=== PATIENT | male | born 1990 | race Caucasian/White ===

== ENCOUNTER 2017-11-05 10:57 | Inpatient (IN) | payer BC, OTHER ==
[2017-11-05] MEDS ORDERED: VANCOMYCIN HCL/NORMAL SALINE 250 ML IV ONE (11:33)
[2017-11-05] MEDS ORDERED: ceFAZolin 2 GM/DEXTROSE 100 ML IV ONE (11:34)
--- NOTE | 2017-11-05 11:35 | EDPHY ---
H & P <Aristeo Vann Dontae - Last Filed: 11/05/17 12:15> Stated Complaint: spider bite to L foot - Personal History Current Tetanus/Diphtheria Vaccine: Yes Current Tetanus Diphtheria and Acellular Pertussis (TDAP): Yes - Medical/Surgical History Hx Asthma: No Hx Chronic Respiratory Disease: No Hx Diabetes: No Hx Cardiac Disease: No Hx Renal Disease: No Hx Cirrhosis: No Hx Alcoholism: No Hx HIV/AIDS: No Hx Splenectomy or Spleen Trauma: No - Social History Smoking Status: Never smoked <Lj Larsen - Last Filed: 11/05/17 13:01> Time Seen by Provider: 11/05/17 11:15 HPI/ROS: CHIEF COMPLAINT: Progressive left pretibial erythema HISTORY OF PRESENT ILLNESS: 27-year-old immunocompetent 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 States that it started when he was sleeping in his bunk bed on the boat [place] it was in dry dock, awoke and noticed left pretibial erythema. This progressed over the next few days. At no point has this area come into contact with any salt water containing objects on the boat. 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 Appears to be in no acute distress. Smiling, appears well 2) HEAD: Normocephalic, atraumatic 3) HEENT: Pupils equal, round, reactive to light bilaterally. Sclera anicteric. 4) NECK: Full range of motion, no meningeal signs. 5) LUNGS: Clear auscultation bilaterally, no wheezes, no rhonchi, no retractions. 6) HEART: Regular rate and rhythm, no murmur, no heave, no gallop. 7) ABDOMEN: No guarding, no rebound, no focal tenderness, negative McBurney's, negative Sawyer's, negative Rovsing's, negative peritoneal sign, 8) MUSCULOSKELETAL: Left lower extremity: Left pretibial fluctuance in foul- smelling purulent drainage. Soft compartments. Erythema noted with induration and lymphangitic streaking. No crepitus. DP PT pulses present and brisk. Dorsiflexion plantar flexion distally elicit no pain.. 9) BACK: , no obvious trauma, no visual or palpable abnormality. 10) SKIN: No rash, no petechiae. 11) Psychiatric: Patient is oriented X 3, there is no agitation. DIFFERENTIAL DIAGNOSIS: In no particular order including but but not limited to cellulitis, abscess, compartment syndrome, necrotizing fasciitis (jL Larsen) Constitutional: Initial Vital Signs Temperature (C) 37.8 C 11/05/17 11:00 Heart Rate 116 H 11/05/17 11:00 Respiratory Rate 16 11/05/17 11:00 Blood Pressure 133/88 H 11/05/17 11:00 O2 Sat (%) 97 11/05/17 11:00 O2 Delivery Mode Room Air Allergies/Adverse Reactions: No Known Allergies Allergy (Unverified 11/05/17 12:05) Home Medications: Medication Instructions Recorded NK [No Known Home Meds] 11/05/17 Medical Decision Making Consult/Admit Bed Type: [place] [id number] <Aristeo Vann - Last Filed: 11/05/17 12:15> <Lj Larsen - Last Filed: 11/05/17 13:01> - Diagnostics Imaging Results: Imaging Impressions Extremity Venous Study 11/05/17 11:23 Impression: 1. Left anterior slaughter complex fluid collection which by history is an abscess. 2. No deep venous thrombosis left leg. Findings and recommendations discussed with Emergency Department physicianLj at 12:10 hour, 11/05/2017. Final report concurs with initial preliminary interpretation. ED Course/Re-evaluation: Patient seen concurrently by myself and Dr. Aristeo Vann in the ER. Plan will be admission to hospitalist service for cellulitis left lower extremity, failure to respond to outpatient antibiotic therapy. Specifically inquired about whether his leg may have come into contact with any salt water containing objects and he denies this. Will hold on vibrio coverage at this time. 12:11 p.m.: Ultrasound left lower extremities negative for DVT a positive for a 7 cm x 4 cm abscess in the pretibial region (Lj Larsen) Other Provider: PHYSICIAN DOCUMENTATION: The patient was evaluated and managed by the Physician Fuse Cup Expander and myself. I have reviewed the chart and agree with the findings and plan of care as documented. In addition, I examined the patient myself at 1130. History confirmed as 10 days of worsening left leg redness. Physical findings as follows : Erythema and swelling of the left leg with some anterior drainage of serosanguineous fluid. Normal motor and sensory distally. No crepitus. Plan for ultrasound, blood cultures, IV antibiotics and admission. Vancomycin 1 g, General surgery consultation for fluid collection seen on ultrasound. Discussed with [place] regarding left leg abscess, 1216. I am the secondary supervising physician. (Aristeo Vann) - Data Points Laboratory Results: Laboratory Results 11/05/17 11:24 11/05/17 11:24 11/05/17 11/05/17 11/05/17 11:24 11:24 11:24 WBC RBC Hgb Hct MCV MCH MCHC RDW Plt Count MPV Neut % (Auto) Lymph % (Auto) [place] % (Auto) Eos % (Auto) Baso % (Auto) Nucleat RBC Rel Count Absolute Neuts (auto) Absolute Lymphs (auto) Absolute Monos (auto) Absolute Eos (auto) Absolute Basos (auto) Absolute Nucleated RBC Immature Gran % Immature Gran # PT 15.7 SEC H SEC (12.0-15.0) INR 1.23 H (0.83-1.16) APTT 38.5 SEC H SEC (23.0-38.0) VBG Lactic Acid 1.4 mmol/L mmol/L (0.7-2.1) Sodium 136 mEq/L mEq/L (135-145) Potassium 3.6 mEq/L mEq/L (3.3-5.0) Chloride 98 mEq/L mEq/L (97-110) Carbon Dioxide 27 mEq/l mEq/l (22-31) Anion Gap 11 mEq/L mEq/L (8-16) BUN 8 mg/dL mg/dL (7-23) Creatinine 0.7 mg/dL mg/dL (0.7-1.3) Estimated GFR > 60 Glucose 107 mg/dL H mg/dL (70-100) Calcium 8.6 mg/dL mg/dL (8.5-10.4) Total Bilirubin 1.1 mg/dL mg/dL (0.1-1.4) 11/05/17 11:24 WBC 15.40 10^3/uL H 10^3/uL (3.80-9.50) RBC 4.17 10^6/uL L 10^6/uL (4.40-6.38) Hgb 12.8 g/dL L g/dL (13.7-17.5) Hct 36.5 % L % (40.0-51.0) MCV 87.5 fL fL (81.5-99.8) MCH 30.7 pg pg (27.9-34.1) MCHC 35.1 g/dL g/dL (32.4-36.7) RDW 12.1 % % (11.5-15.2) Plt Count 285 10^3/uL 10^3/uL (150-400) MPV 9.9 fL fL (8.7-11.7) Neut % (Auto) 81.5 % H % (39.3-74.2) Lymph % (Auto) 9.4 % L % (15.0-45.0) [place] % (Auto) 7.9 % % (4.5-13.0) Eos % (Auto) 0.5 % L % (0.6-7.6) Baso % (Auto) 0.2 % L % (0.3-1.7) Nucleat RBC Rel Count 0.0 % % (0.0-0.2) Absolute Neuts (auto) 12.56 10^3/uL H 10^3/uL (1.70-6.50) Absolute Lymphs (auto) 1.44 10^3/uL 10^3/uL (1.00-3.00) Absolute Monos (auto) 1.22 10^3/uL H 10^3/uL (0.30-0.80) Absolute Eos (auto) 0.08 10^3/uL 10^3/uL (0.03-0.40) Absolute Basos (auto) 0.03 10^3/uL 10^3/uL (0.02-0.10) Absolute Nucleated RBC 0.00 10^3/uL 10^3/uL (0-0.01) Immature Gran % 0.5 % % (0.0-1.1) Immature Gran # 0.07 10^3/uL 10^3/uL (0.00-0.10) PT INR APTT VBG Lactic Acid Sodium Potassium Chloride Carbon Dioxide Anion Gap BUN Creatinine Estimated GFR Glucose Calcium Total Bilirubin Medications Given: Discontinued Medications Vancomycin/Sodium Chloride (Vancomycin 1 Gm (Premix)) 250 mls @ 250 mls/hr IV EDNOW ONE PRN Reason: Protocol Stop: 11/05/17 12:32 Last Admin: 11/05/17 12:06 Dose: 250 mls Departure <Aristeo Vann - Last Filed: 11/05/17 12:15> <Lj Larsen - Last Filed: 11/05/17 13:01> - Departure Disposition: [facility] Inpatient Acute Clinical Impression: Left leg cellulitis, Abscess of left lower extremity Condition: Fair
[2017-11-05 11:39] LABS: PLATELET COUNT 285 10^3/uL (150-400)
[2017-11-05 11:52] LABS: INR 1.23 (0.83-1.16); PROTIME(PATIENT) 15.7 SEC (12.0-15.0)
[2017-11-05] MEDS ORDERED: NS 1,000 ML IV ONE (12:31)
[2017-11-05] MEDS ORDERED: ACETAMINOPHEN 325 MG TAB PO PRN (12:32)
[2017-11-05] MEDS ORDERED: ONDANSETRON 4 MG/2 ML VIAL IVP PRN ×2 (12:32→13:47)
[2017-11-05] MEDS ORDERED: ZOLPIDEM TARTRATE 5 MG TAB PO PRN (12:32)
[2017-11-05] MEDS ORDERED: ONDANSETRON DISINTEGRATING 4 MG TAB PO PRN (12:32)
--- NOTE | 2017-11-05 12:34 | PDGENHP ---
History and Physical History and Physical: CC: HISTORY: ROS: A comprehensive 10 system review revealed no other significant findings PAST MEDICAL HISTORY: FAMILY MEDICAL HISTORY: SOCIAL HISTORY: MEDICATIONS: The patients list has been reconciled by our clinical pharmacist in the EMR. I have reviewed the list and ordered appropriate medicines. 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 I have reviewed the patient's past medical records as part of this assessment, including
[2017-11-05] MEDS ORDERED: traMADol 50 MG TAB PO PRN (12:35)
[2017-11-05] MEDS ORDERED: HYDROmorphONE/DILAUDID 2 MG TAB PO PRN (12:35)
--- NOTE | 2017-11-05 13:15 | GHP ---
[f rep st] PREOP HISTORY AND PHYSICAL DATE OF ADMISSION: 11/05/2017 REASON FOR ADMISSION: Abscess, left anterior lateral lower leg. 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 On the night of the , he noticed a small redness on his left lower leg. He thought it might have have an insect bite. He covered it with a Band-Aid. This was bigger the next day. It became gradually redder and larger over the interim. On the evening of the , there was an increased redness as well as some swelling of his leg. He was taken to a clinic where he received Ancef and vancomycin. They recommended that he go either to [place] or back to [place]; he chose the latter. He presented this morning for evaluation. His temperature was 37.6. His white count was 15,000. Blood pressure 135 over 86 to 116. He was draining some purulent material from the center of the infected area. He was interrogated with ultrasound. An x-ray is pending. SOCIAL HISTORY: There is no history of tobacco use. He does drink alcohol moderately heavily, but because of the fishing trip, he has not had any in the last 2 weeks. ALLERGIES: He has no known drug allergies. PAST SURGICAL HISTORY: His only surgical experience has been wisdom tooth extraction. There is no history of rheumatic fevers, tuberculosis, hepatitis, or transfusions. REVIEW OF SYSTEMS: He wears lenses visual correction. Review of systems is otherwise quite negative. No limits on his activities and no history of steroid use. PHYSICAL EXAMINATION: GENERAL: He is awake, alert, oriented. He does not appear septic at this time. LYMPHATICS: There is no cervical, supraclavicular , axillary, or inguinal lymphadenopathy. NECK: His thyroid is not enlarged. LUNGS: Clear to auscultation. CARDIAC: Shows S1, S2 to be normal. Normal split of S2. ABDOMEN: Soft and nontender. He has not had much to eat in the last 48 hours, but he did drink Gatorade prior to presenting to the ER this morning. LOWER EXTREMITIES: His right lower extremity is unremarkable. His left lower extremity is normal above the knee. Below the knee, there is approximately a 6 inch x 8 inch fluctuant area with local erythema. There is 2 + edema at the ankles. There is 4+ edema in the region of the erythema. IMPRESSION: Patient with an extensive cellulitis and subcutaneous abscess. X- rays are to be obtained to see if there is any gas in the tissue or if any evidence of change in the bone. PLAN: My plan is to take him to the operating room to open the wound up and clean it out, possibly placing a wound VAC. /[id number]/MODL MTDD
[2017-11-05] MEDS ORDERED: LR 1,000 ML IV ONE (13:26)
[2017-11-05] MEDS ORDERED: ALBUTEROL 3 ML DEYVIAL IH PRN (13:47)
[2017-11-05] MEDS ORDERED: fentaNYL 100 MCG/2 ML INJ IVP PRN (13:47)
[2017-11-05] MEDS ORDERED: NALOXONE HCL 0.4 MG/ML INJ IVP PRN (13:47)
[2017-11-05] MEDS ORDERED: LR 500 ML IV PRN (13:47)
[2017-11-05] MEDS ORDERED: NS 500 ML IV PRN (13:47)
[2017-11-05] MEDS ORDERED: DEXAMETHASONE 4 MG/ML VIAL IVP PRN (13:47)
[2017-11-05] MEDS ORDERED: HYDROmorphONE/DILAUDID 1 MG/ML INJ IVP PRN (13:47)
[2017-11-05] MEDS ORDERED: HYDROCODONE/APAP 5/325 TAB PO PRN (13:47)
[2017-11-05] MEDS ORDERED: ACETAMINOPHEN 500 MG TAB PO PRN (13:47)
[2017-11-05] MEDS ORDERED: oxyCODONE IR 5 MG TAB PO PRN (13:47)
--- NOTE | 2017-11-05 13:47 | PDANEPAE ---
ANE History of Present Illness here for left slaughter I and D ANE Past Medical History - Cardiovascular History Hx Hypertension: No Hx Arrhythmias: No Hx Chest Pain: No Hx Coronary Artery / Peripheral Vascular Disease: No Hx CHF / Valvular Disease: No Hx Palpitations: No - Pulmonary History Hx COPD: No Hx Asthma/Reactive Airway Disease: No Hx Recent Upper Respiratory Infection: No Hx Oxygen in Use at Home: No Hx Sleep Apnea: No - Endocrine History Hx Diabetes: No Hypothyroid: No Hyperthyroid: No Obesity: no - Renal History Hx Renal Disorders: No - Liver History Hx Hepatic Disorders: No - Neurological & Psychiatric Hx Hx Neurological and Psychiatric Disorders: No ANE Review of Systems Review of systems is: negative Review of Systems: - Exercise capacity Exercise capacity: >=4 METS ANE Patient History - Allergies Allergies/Adverse Reactions: No Known Allergies Allergy (Unverified 11/05/17 12:05) - Home Medications Home medications: home medication list seen and reviewed Home Medications: Hydrocodone/Acetaminophen [[place] 5/325 (*)] 1 each PO Q6HRS PRN 11/05/17 [Last Taken 11/05/17 01:00] - NPO status NPO Since - Liquids (Date): 11/05/17 NPO Since - Liquids (Time): 10:00 NPO Since - Solids (Date): 11/05/17 NPO Since - Solids (Time): 05:00 - Smoking Hx Smoking Status: Never smoked ANE Labs/Vital Signs - Labs Result Diagrams: 11/05/17 11:24 11/05/17 11:24 - Vital Signs Vital Signs: reviewed preoperatively; see RN documention for details Blood Pressure: 136/79 Heart Rate: 104 Respiratory Rate: 16 O2 Sat (%): 97 Height: 187.96 cm Weight: 108.862 kg ANE Physical Exam - Airway Neck exam: FROM Mallampati Score: Class 1 Mouth exam: normal dental/mouth exam - Pulmonary Pulmonary: no respiratory distress - Cardiovascular Cardiovascular: regular rate and rhythym - ASA Status ASA Status: I ANE Anesthesia Plan Anesthesia Plan: GA w LMA
[2017-11-05] MEDS ORDERED: MIDAZOLAM 2 MG/2 ML VIAL IVP ONE (13:51)
[2017-11-05] MEDS ORDERED: POLYMYXIN B SULFATE 500,000 UNIT/10 ML SYR IRR ONE (13:57)
[2017-11-05] MEDS ORDERED: BUPIVACAINE/EPI 0.5% 30 ML SDV ONE (13:57)
[2017-11-05] MEDS ORDERED: BUPIVACAINE 0.25% 30 ML SDV ONE (13:57)
[2017-11-05] MEDS ORDERED: BACITRACIN 50,000 UNITS/10 ML SYR IRR ONE (13:58)
[2017-11-05] MEDS ORDERED: PROPOFOL/EMULSION 500 MG/50 ML BOTTLE IV ONE (13:59)
[2017-11-05] MEDS ORDERED: fentaNYL 100 MCG/2 ML INJ ONE ×2 (14:01→14:29)
[2017-11-05] MEDS ORDERED: MIDAZOLAM 2 MG/2 ML VIAL ONE (14:12)
[2017-11-05] MEDS ORDERED: DEXAMETHASONE 4 MG/ML VIAL ONE (14:28)
[2017-11-05] MEDS ORDERED: ONDANSETRON 4 MG/2 ML VIAL ONE (14:28)
--- NOTE | 2017-11-05 15:22 | POSTOPPROG ---
Post Op Note Date of Operation: 11/05/17 Surgeon: Yinka Chawla Anesthesia: LMA Pre-op Diagnosis: abscess left lower leg Post-op Diagnosis: abscess left lower leg Indication: abscess left lower leg Procedure: I&D abscess with irrigation and wound vac placement Findings: abscess left lower leg Inf/Abcess present in the surg proc area at time of surgery?: Yes Depth: Superfical (Skin SQ) EBL: Minimal Total fluids administered: 700 Complications: none Drains: Wound Vac Specimen(s): none
--- NOTE | 2017-11-05 15:28 | POSTANESTH ---
Post Anesthetic Evaluation Cardiovascular Status: Normal, Stable Respiratory Status: Normal, Stable Level of Consciousness/Mental Status: Mildly Sleepy, Arousable, Moderately Sleepy Pain Control: Adequate, Prn Tx Ordered Nausea/Vomiting Control: Adequate, Prn Tx Ordered Complications Possibly Related to Anesthesia: None Noted
--- NOTE | 2017-11-05 15:51 | GOP ---
[f rep st] OPERATIVE REPORT DATE OF OPERATION: 11/05/2017 SURGEON: Yinka Chawla MD ANESTHESIA: By laryngeal mask. PREOPERATIVE DIAGNOSIS: Abscess, left lower leg. POSTOPERATIVE DIAGNOSIS: Abscess, left lower leg, anterolateral aspect measuring approximately 6 inches x 4 inches. PROCEDURE PERFORMED: Incision and drainage of abscess with pressure irrigation and wound VAC placement. FINDINGS: Abscess, left lower leg, anterolateral aspect measuring approximately 6 inches x 4 inches. ESTIMATED BLOOD LOSS: Minimal. INDICATIONS: Abscess, left lower leg, anterolateral aspect measuring approximately 6 inches x 4 inches. DESCRIPTION OF PROCEDURE: The patient was placed on the operating room table in the supine position. After induction of adequate general anesthesia by laryngeal mask, the left lower leg was carefully prepped and draped. An extremity drape was used. Surgical time-out was carried out and agreed to by all members of the operative team. At this point, a cotton-tipped applicator was placed in through the draining sinus. The extent of the wound cavity was measured in all directions. Based on this, an oblique incision which started high laterally and went low medially would give us the best coverage of the abscess cavity. The skin was sharply incised. The incision was deepened with Bovie electrocautery. A large amount of purulent drainage was obtained. A Simpulse process expert with bacitracin was then used to irrigate the wound vigorously. Hemostasis was achieved. The wound VAC sponge was placed. The wound VAC plastic dressing was placed. It was punctured and a VAC connector was attached and was connected to the wound VAC machine. There was no air leak. The patient tolerated the procedure well, and he was transferred to recovery. FLUIDS ADMINISTERED: 700. COMPLICATIONS: None. Wound VAC was placed. PLAN: Re-evaluate on Thursday morning (2 days hence) for wound VAC placement and/or delayed primary closure. /[id number]/MODL MTDD
--- NOTE | 2017-11-05 16:38 | PDMN ---
Medical Necessity Medical necessity: M70 cellulitis A-2 days : extensive cellulitis and subcutaneous abscess, LLL abscess with I/,D wound vac placement
[2017-11-05] MEDS: IBUPROFEN 200 MG TAB PO PRN (16:39)
--- NOTE | 2017-11-05 17:16 | PDGENHP ---
History and Physical History and Physical: CC: Infection of leg HISTORY: This patient generally healthy taking no medicines started noticing just over a week ago a small painful red bump on the lateral aspect of his right calf. This progressed to involve a bigger area of redness swelling and tenderness and eventually he was seen in the clinic and there was some small amount of fluid draining. 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 He came back here to [place] to have this cared for untreated. He does not have any lightheadedness but has had some mild chills and sweats. He attributed this process to a bug bite as that is what it looked like when he sought on the 1st day but he did not actually have a definite bug bite that he knows of and no other injury to the skin or otherwise. He has no prior history of skin or soft tissue infections and no other significant infectious illness. ROS: A comprehensive 10 system review revealed no other significant findings PAST MEDICAL HISTORY: Dental abscess with a dental extraction An episode of paroxysmal positional vertigo treated by Physical therapy FAMILY MEDICAL HISTORY: 1 grandfather SOCIAL HISTORY: Intermittently uses some alcohol but has had no alcohol for 2 weeks No tobacco or street drugs, no history of IV drug use MEDICATIONS: Only some [place] that he was prescribed recently at the clinic in [place] for this infection PHYSICAL EXAMINATION: Vital Signs: Stable blood pressure and pulse, low-grade fever, respirations normal Supervisor Erection Shop: Sinus in the ER Examination: General: alert, oriented, good mentation, relaxed Skin: warm, dry, good color, no rash HEENT: normal Neck: no mass or jvd Resps: relaxed Lungs: clear breath sounds Heart: regular, no murmur Abdomen: soft, nondistended, nontender, +BS, no mass Upper Extremities: normal Lower Extremities: I am examining him postoperative and he has a wound VAC over a incision on the anterior lateral aspect of the right calf, draining some blood-tinged fluid. There is significant cellulitis of the entire lower leg, and some non cellulitic appearing swelling above the knee on the distal portion of the thigh. 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, no focal weakness IV site: looks normal LABORATORY DATA: White cell count 15,000 with predominance neutrophils, borderline low red count at 12 0.8 hemoglobin Unremarkable metabolic panel MICROBIOLOGY: G stain from aspirate from his abscess showing gram-positive cocci in clusters consistent with Staph RADIOLOGY STUDIES: X-rays of the tibia and fibula on the right were done in the ER, I reviewed the images: I do not see any fractures or other bony abnormality, and did not see any significant abnormal gas in the soft tissues ASSESSMENT: # skin and soft tissue infection and the right lower leg with abscess and severe cellulitis without signs of necrosis: Complicated by fever but no sepsis at present # Gram stain consistent with staphylococcal infection The patient has been to the OR for incision and drainage with Dr. Chawla has a wound VAC in place. This all went well. PLANS: * Ancef was started in the ER and I will continue that pending cultures * Elevation of leg * Continue wound VAC and ongoing wound care; he will need ongoing wound care in the outpatient setting as well as he will take a while for this to heal up * It sounds like Dr. Chawla is planning likely re-exploration a couple of days, will follow along and agree with that plan for now * Pain management as needed
[2017-11-05] MEDS: ceFAZolin 2 GM/DEXTROSE 100 ML IV SCH (22:34)
[2017-11-06] MEDS: ceFAZolin 2 GM/DEXTROSE 100 ML IV SCH ×3 (06:01→22:00)
[2017-11-06 08:09] LABS: PLATELET COUNT 293 10^3/uL (150-400)
[2017-11-06] MEDS: ENOXAPARIN 40 MG/0.4 ML SYR SC SCH (08:59)
--- NOTE | 2017-11-06 10:28 | ASMTCMCOM ---
CM Note CM Note Notes: Chart reviewed. Normally healthy 27 year old male with no significant history admitted for LLE cellulitis s/p I&D with wound vac placement. Per the chart he is likely to return to OR tomorrow. Needs to be determined at this time. PLAN: TBD Date Signed: 11/06/2017 10:27 AM Electronically Signed By:Rosa Ojeda RN
[2017-11-06] MEDS: IBUPROFEN 200 MG TAB PO PRN (12:18)
--- NOTE | 2017-11-06 14:31 | SOAPPROG ---
SOAP Progress Note Assessment/Plan: Assessment: leg with some residual swelling and cellulitis, VAC in place with minimal output in canister - VAC change tomorrow - WBC downtrending - Nothing else to add. Plan: 11/06/17 14:30 Subjective: feels well Objective: Vital Signs Temp Pulse Resp BP Pulse Ox 36.8 C 95 14 128/69 H 97 11/06/17 11:24 11/06/17 11:24 11/06/17 11:24 11/06/17 11:24 11/06/17 11:24 Laboratory Results 11/06/17 07:42 11/05/17 11/06/17 11/07/17 05:59 05:59 05:59 Intake Total 760 Output Total 3 Balance 757 PT 15.7 SEC (12.0-15.0) H 11/05/17 11:24 INR 1.23 (0.83-1.16) H 11/05/17 11:24 ICD10 Worksheet Patient Problems: Problems Problem Status Onset Abscess of left lower extremity Acute Left leg cellulitis Acute
--- NOTE | 2017-11-06 17:39 | HOSPPROG ---
Hospitalist Progress Note Assessment/Plan: Assessment: 27-year-old male presents with Staph aureus cellulitis and abscess left lower extremity Plan: 1. Staph aureus cellulitis and abscess. Acute, new problem this provider, further workup indicated. Left lower extremity, status post incision and drainage by Dr. Mckinley Chawla on 11/05 -cultures sent, currently growing Staph aureus, speciation and sensitivity currently pending -leukocytosis persists, repeat white blood cell count tomorrow a.m., and monitor trend -wound VAC remains in place, will undergo surgical reassessment in OR tomorrow by Dr. Chawla -day to IV Ancef, continue current antibiotic therapy -once patient's speciation and sensitivities available, will discuss with Infectious Disease regarding ideal antibiotic transition into the outpatient setting -pain control as needed -bowel regiment Diet. Regular Prophylaxis. High risk patient, Lovenox 40 Code. Full Disposition. Anticipated discharge uncertain this time, ongoing wound VAC and daily surgical management Subjective: less pain in leg Objective: Vital Signs Temp Pulse Resp BP Pulse Ox 36.8 C 95 14 128/69 H 97 11/06/17 11:24 11/06/17 11:24 11/06/17 11:24 11/06/17 11:24 11/06/17 11:24 Laboratory Results 11/06/17 07:42 11/05/17 11/06/17 11/07/17 05:59 05:59 05:59 Intake Total 760 Output Total 3 Balance 757 PT 15.7 SEC (12.0-15.0) H 11/05/17 11:24 INR 1.23 (0.83-1.16) H 11/05/17 11:24 - Physical Exam Constitutional: no apparent distress, appears nourished, not in pain, No uncomfortable Cardiovascular: regular rate and rhythym, no murmur, rub, or gallop Respiratory: no respiratory distress, no rales or rhonchi, clear to auscultation Gastrointestinal: normoactive bowel sounds, soft, non-tender abdomen, no palpable masses Skin: other (blanching, mild erythema LLE w/ 10cm incision, mildly tender, not indurated/ wound VAC in place) Neurologic: AAOx3, sensation intact bilaterally, No weakness Psychiatric: interacting appropriately, not anxious, not encephalopathic, thought process linear ICD10 Worksheet Patient Problems: Problems Problem Status Onset Left leg cellulitis Acute Abscess of left lower extremity Acute
[2017-11-06] MEDS ORDERED: BISACODYL 10 MG SUPP PR PRN (17:40)
[2017-11-06] MEDS ORDERED: MAGNESIUM HYDROXIDE 30 ML UDCUP PO PRN (17:40)
[2017-11-06] MEDS ORDERED: POLYETHYLENE GLYCOL 3350 17 GM PKT PO PRN (17:40)
[2017-11-06] MEDS ORDERED: LACTULOSE 20 GM/30 ML UDCUP PO PRN (17:40)
[2017-11-06] MEDS: SENNOSIDES/DOCUSATE SODIUM TAB PO SCH (23:15)
[2017-11-07] MEDS: NS 1,000 ML IV SCH ×2 (00:33→17:07)
[2017-11-07 05:07] LABS: PLATELET COUNT 322 10^3/uL (150-400)
[2017-11-07] MEDS: ceFAZolin 2 GM/DEXTROSE 100 ML IV SCH ×3 (05:50→22:18)
--- NOTE | 2017-11-07 09:05 | SOAPPROG ---
SOAP Progress Note Assessment/Plan: 11/07/17 09:01 POD#2 Assessment: Erythema decreased. extent of 4+ edema decreased. Has staph that is pansensitive. WBC 7.9. wound vac output minimal Plan: Return to OR for reassessment/debridement with wound vac change or closure over drain. Subjective: I feel better Objective: Vital Signs Temp Pulse Resp BP Pulse Ox 36.7 C 91 16 115/63 97 11/07/17 08:00 11/07/17 08:00 11/07/17 08:00 11/07/17 08:00 11/07/17 08:00 Laboratory Results 11/07/17 04:50 11/07/17 04:50 11/06/17 11/07/17 11/08/17 05:59 05:59 05:59 Intake Total 760 1993 Output Total 3 50 Balance 757 1943 PT 15.7 SEC (12.0-15.0) H 11/05/17 11:24 INR 1.23 (0.83-1.16) H 11/05/17 11:24 Physical Exam - Physical Exam Skin: other (erythema dramatically reduced. 4+ edema confined to periabscess area) ICD10 Worksheet Patient Problems: Problems Problem Status Onset Abscess of left lower extremity Acute Left leg cellulitis Acute
[2017-11-07] MEDS: SENNOSIDES/DOCUSATE SODIUM TAB PO SCH (09:08)
[2017-11-07] MEDS ORDERED: MIDAZOLAM 2 MG/2 ML VIAL IVP ONE (14:56)
[2017-11-07] MEDS ORDERED: MIDAZOLAM 2 MG/2 ML VIAL ONE (14:58)
--- NOTE | 2017-11-07 14:58 | PDANEPAE ---
ANE Past Medical History - Cardiovascular History Hx Hypertension: No Hx Arrhythmias: No Hx Chest Pain: No Hx Coronary Artery / Peripheral Vascular Disease: No Hx CHF / Valvular Disease: No Hx Palpitations: No - Pulmonary History Hx COPD: No Hx Asthma/Reactive Airway Disease: No Hx Recent Upper Respiratory Infection: No Hx Oxygen in Use at Home: No Hx Sleep Apnea: No Sleep Apnea Screening Result - Last Documented: Negative - Endocrine History Hx Diabetes: No Hypothyroid: No Hyperthyroid: No Obesity: no - Renal History Hx Renal Disorders: No - Liver History Hx Hepatic Disorders: No - Neurological & Psychiatric Hx Hx Neurological and Psychiatric Disorders: No ANE Review of Systems Review of Systems: ANE Patient History - Allergies Allergies/Adverse Reactions: No Known Allergies Allergy (Unverified 11/05/17 12:05) - Home Medications Home Medications: Hydrocodone/Acetaminophen [[place] 5/325 (*)] 1 each PO Q6HRS PRN 11/05/17 [Last Taken 11/05/17 01:00] - NPO status NPO Status: no food or drink >8 hours NPO Since - Liquids (Date): 11/07/17 NPO Since - Liquids (Time): 00:00 NPO Since - Solids (Date): 11/07/17 NPO Since - Solids (Time): 00:00 - Anes Hx Anes Hx: no prior problems - Smoking Hx Smoking Status: Never smoked ANE Labs/Vital Signs - Labs Result Diagrams: 11/07/17 04:50 11/07/17 04:50 - Vital Signs Blood Pressure: 128/83 Heart Rate: 84 Respiratory Rate: 18 O2 Sat (%): 96 Height: 187.96 cm Weight: 108.862 kg ANE Physical Exam - Airway Neck exam: FROM Mallampati Score: Class 2 Mouth exam: normal dental/mouth exam - Pulmonary Pulmonary: no respiratory distress, no rales or rhonchi, clear to auscultation - Cardiovascular Cardiovascular: regular rate and rhythym, no murmur, rub, or gallop - ASA Status ASA Status: I ANE Anesthesia Plan Anesthesia Plan: GA w LMA
[2017-11-07] MEDS ORDERED: fentaNYL 100 MCG/2 ML INJ ONE ×3 (15:09→16:23)
[2017-11-07] MEDS ORDERED: ONDANSETRON 4 MG/2 ML VIAL ONE (15:10)
[2017-11-07] MEDS ORDERED: LIDOCAINE 2% JELLY 5 ML TUBE ONE (15:10)
[2017-11-07] MEDS ORDERED: PROPOFOL 200 MG/20 ML VIAL ONE (15:10)
[2017-11-07] MEDS ORDERED: LIDOCAINE 2% 5 ML SDV ONE (15:23)
[2017-11-07] MEDS ORDERED: BACITRACIN 50,000 UNITS/10 ML SYR IRR ONE (15:27)
[2017-11-07] MEDS ORDERED: MEPERIDINE 25 MG/0.5 ML AMP IVP PRN (15:38)
[2017-11-07] MEDS ORDERED: ACETAMINOPHEN 500 MG TAB PO PRN (15:38)
[2017-11-07] MEDS ORDERED: LR 500 ML IV PRN (15:38)
[2017-11-07] MEDS ORDERED: PROMETHAZINE HCL 25 MG/ML INJ IVP PRN (15:38)
[2017-11-07] MEDS ORDERED: NALOXONE HCL 0.4 MG/ML INJ IVP PRN (15:38)
[2017-11-07] MEDS ORDERED: fentaNYL 100 MCG/2 ML INJ IVP PRN (15:38)
[2017-11-07] MEDS ORDERED: oxyCODONE IR 5 MG TAB PO PRN (15:38)
[2017-11-07] MEDS ORDERED: ONDANSETRON 4 MG/2 ML VIAL IVP PRN (15:38)
[2017-11-07] MEDS ORDERED: KETOROLAC 30 MG/1 ML SDV ONE (15:50)
[2017-11-07] MEDS ORDERED: BACITRACIN ZINC 14.2 GM OINTTUBE TP ONE (16:00)
--- NOTE | 2017-11-07 16:13 | POSTOPPROG ---
Post Op Note Date of Operation: 11/07/17 Surgeon: Yinka Chawla Anesthesia: LMA Pre-op Diagnosis: Abscess left lower leg, s/p drbridement/wound vac placement Post-op Diagnosis: Wound with good granulation and no obvious residual gross infection Indication: Abscess left lower leg, s/p drbridement/wound vac placement Procedure: debridement/power irrigation with delayed primary closure Findings: Wound with good granulation and no obvious residual gross infection Inf/Abcess present in the surg proc area at time of surgery?: No EBL: Minimal Total fluids administered: 700 Drains: Issac Wellington Specimen(s): none
--- NOTE | 2017-11-07 16:28 | POSTANESTH ---
Post Anesthetic Evaluation Cardiovascular Status: Normal, Stable, Similar to Pre-Op Cond Respiratory Status: Normal, Stable, Similar to Pre-op Cond. Level of Consciousness/Mental Status: Can Participate in Eval, Alert and Oriented Pain Control: Adequate, Prn Tx Ordered Nausea/Vomiting Control: Adequate, Prn Tx Ordered Complications Possibly Related to Anesthesia: None Noted
--- NOTE | 2017-11-07 17:48 | HOSPPROG ---
Hospitalist Progress Note Assessment/Plan: Assessment: 27-year-old male presents with MSSA cellulitis and abscess left lower extremity Plan: 1. MSSA cellulitis and abscess. Acute, left lower extremity, status post incision and drainage by Dr. Mckinley Chawla on 11/05 -d/w Dr. Chawla, he reports good granulation in OR, placed RAMON and will monitor RAMON output -d/w Dr Reyes, she recommends 7 days PO Abx s/p surgical intervention/IV Abx -pain control as needed -bowel regiment Diet. Regular Prophylaxis. High risk patient, Lovenox 40 Code. Full Disposition. Anticipated discharge 11/09 pending ongoing improvement Subjective: mild pain in LLE, had a BM Objective: Vital Signs Temp Pulse Resp BP Pulse Ox 36.8 C 85 16 132/75 H 98 11/07/17 17:01 11/07/17 17:01 11/07/17 17:01 11/07/17 17:01 11/07/17 17:01 Laboratory Results 11/07/17 04:50 11/07/17 04:50 11/06/17 11/07/17 11/08/17 05:59 05:59 05:59 Intake Total 760 1992 1240 Output Total 3 50 20 Balance 757 1943 1220 PT 15.7 SEC (12.0-15.0) H 11/05/17 11:24 INR 1.23 (0.83-1.16) H 11/05/17 11:24 - Pending Discharge Pending Discharge Within 48 Hours: Yes Pending Discharge Date: 11/09/17 Pending Discharge Time: 11:00 - Physical Exam Constitutional: no apparent distress, appears nourished, not in pain, No uncomfortable Cardiovascular: regular rate and rhythym, no murmur, rub, or gallop Respiratory: no respiratory distress, no rales or rhonchi, clear to auscultation Gastrointestinal: normoactive bowel sounds, soft, non-tender abdomen, no palpable masses Skin: other (mildly blanching erythema LLE w/o induration, mild tenderness around 10cm wound vac incision site) Neurologic: AAOx3, sensation intact bilaterally, No weakness Psychiatric: interacting appropriately, not anxious, not encephalopathic, thought process linear ICD10 Worksheet Patient Problems: Problems Problem Status Onset Left leg cellulitis Acute Abscess of left lower extremity Acute
--- NOTE | 2017-11-07 19:10 | GOP ---
[f rep st] OPERATIVE REPORT DATE OF OPERATION: 11/07/2017 SURGEON: Yinka Chawla MD ANESTHESIA: By laryngeal mask. PREOPERATIVE DIAGNOSIS: Abscess, left lower leg, status post debridement/wound VAC placement. POSTOPERATIVE DIAGNOSIS: Wound with good granulation and no obvious residual gross infection. PROCEDURE PERFORMED: Debridement, power irrigation with delayed primary closure. There was no obvious abscess at the time. FINDINGS: Wound with good granulation. No obvious gross residual infection. ESTIMATED BLOOD LOSS: Minimal. INDICATIONS: Abscess, left lower leg, status post debridement/wound VAC placement. DESCRIPTION OF PROCEDURE: The patient was placed on the operating room table in supine position. After induction of adequate general endotracheal anesthesia , the leg was carefully elevated and prepped circumferentially from the level of the knee to the malleolus. A stockinette was placed over the foot. An extremity drape was used. Note, the prior wound VAC had been removed prior to the prep. A surgical time-out was carried out and agreed to by all members of the operative team. The wound was physically inspected, and a small amount of residual necrotic tissue was removed. A Simpulse etiquette coach (with bacitracin) was used. The skin edges were carefully mobilized with finger dissection at the fascial level to allow closure. I feel it is safe to close at this point without using wound VAC. A RAMON drain is placed in the wound and lead out in the superior anterolateral aspect of the lower leg wound. The skin was closed with vertical mattress sutures of #0 Prolene and 2-0 nylon. Small interrupted vertical mattress sutures of 4-0 nylon were also used. This resulted in watertight and complete closure with minimal tension. Topical antibiotic was placed. The drain has been sutured in with a 3-0 silk suture. 4x4s were placed over the incision. A Kerlix roll was placed going from the toes to just below the knee. A 4-inch Luis is used starting at the ankle extended down onto the forefoot and brought up to the ankle. A 6-inch Luis was used to wrap the lower leg to above the site of the incision. The patient tolerated the procedure well, and was transferred to Recovery in stable and satisfactory condition. FLUID: 700 cc. The wound was closed over Issac Wellington drain. /[id number]/MODL MTDD
[2017-11-07] MEDS: IBUPROFEN 200 MG TAB PO PRN (22:18)
[2017-11-08] MEDS: SENNOSIDES/DOCUSATE SODIUM TAB PO SCH ×3 (00:41→22:47)
[2017-11-08 05:25] LABS: PLATELET COUNT 344 10^3/uL (150-400)
[2017-11-08] MEDS: ceFAZolin 2 GM/DEXTROSE 100 ML IV SCH ×3 (06:17→22:18)
[2017-11-08] MEDS: ENOXAPARIN 40 MG/0.4 ML SYR SC SCH (08:07)
[2017-11-08] MEDS: IBUPROFEN 200 MG TAB PO PRN (08:08)
--- NOTE | 2017-11-08 13:17 | HOSPPROG ---
Hospitalist Progress Note Assessment/Plan: 27-year-old male presents with MSSA cellulitis and abscess left lower extremity. First encounter, chart reviewed. D/W Dr Mallory. Plan: 1. MSSA cellulitis and abscess. -Acute, left lower extremity, status post incision and drainage by Dr. Mckinley Chawla on 11/05 -RAMON and will monitor RAMON output -ID recommends 7 days PO Abx s/p surgical intervention/IV Abx -pain control as needed -bowel regiment Diet. Regular Prophylaxis. High risk patient, Lovenox 40 Code. Full Disposition. Anticipated discharge 11/09 pending ongoing improvement Subjective: Feeling better. Eager to leave the hospital. Pain controlled. Objective: Vital Signs Temp Pulse Resp BP Pulse Ox 36.8 C 80 16 141/70 H 96 11/08/17 08:00 11/08/17 08:00 11/08/17 08:00 11/08/17 08:00 11/08/17 08:00 Laboratory Results 11/08/17 04:21 11/07/17 04:50 11/07/17 11/08/17 11/09/17 05:59 05:59 05:59 Intake Total 1992 2039 1679 Output Total 50 1630 Balance 4950 256 2165 PT 15.7 SEC (12.0-15.0) H 11/05/17 11:24 INR 1.23 (0.83-1.16) H 11/05/17 11:24 - Physical Exam Constitutional: no apparent distress, appears nourished, not in pain Eyes: PERRL, anicteric sclera, EOMI Ears, Nose, Mouth, Throat: moist mucous membranes, hearing normal, ears appear normal Cardiovascular: No JVD, No tachycardia, No edema Respiratory: no respiratory distress, no rales or rhonchi, clear to auscultation Gastrointestinal: No tenderness, No ascites, No guarding Skin: warm, no rashes or abrasions, erythema Musculoskeletal: no joint effusions, muscular tenderness, generalized weakness Neurologic: AAOx3 Psychiatric: interacting appropriately, not anxious, not encephalopathic, thought process linear ICD10 Worksheet Patient Problems: Problems Problem Status Onset Left leg cellulitis Acute Abscess of left lower extremity Acute
--- NOTE | 2017-11-08 16:03 | SOAPPROG ---
SOAP Progress Note Assessment/Plan: 11/07/17 09:01 POD#2 Assessment: Erythema decreased. extent of 4+ edema decreased. Has staph that is pansensitive. WBC 7.9. wound vac output minimal Plan: Return to OR for reassessment/debridement with wound vac change or closure over drain. 11/08/17 15:59 POD#1&3 Assessment: Leg dramatically better, Afebrile, VSS, drainage down, edema decreased Plan: re-evaluate tomorrow to see if drain can be removed. Wounld not remove sutures until 3 more weeks have elapsed. Subjective: I feel much better Objective: Vital Signs Temp Pulse Resp BP Pulse Ox 37.2 C 84 16 147/73 H 94 11/08/17 15:35 11/08/17 15:35 11/08/17 15:35 11/08/17 15:35 11/08/17 15:35 Laboratory Results 11/08/17 04:21 11/07/17 04:50 11/07/17 11/08/17 11/09/17 05:59 05:59 05:59 Intake Total 19920 1679 Output Total 50 1630 Balance 3646 313 0135 PT 15.7 SEC (12.0-15.0) H 11/05/17 11:24 INR 1.23 (0.83-1.16) H 11/05/17 11:24 - Time Spent With Patient Time Spent With Patient: 15 Physical Exam - Physical Exam Extremities: other (erythema almost completely resolved, swelling reduced to 1+ , veronica output is minimal) Neuro/Psych: no motor/sensory deficits, alert, normal mood/affect, oriented x 3 ICD10 Worksheet Patient Problems: Problems Problem Status Onset Abscess of left lower extremity Acute Left leg cellulitis Acute
[2017-11-09 05:29] LABS: PLATELET COUNT 430 10^3/uL (150-400)
[2017-11-09] MEDS: ceFAZolin 2 GM/DEXTROSE 100 ML IV SCH ×2 (06:08→14:47)
[2017-11-09] MEDS: ENOXAPARIN 40 MG/0.4 ML SYR SC SCH (10:08)
[2017-11-09] MEDS: SENNOSIDES/DOCUSATE SODIUM TAB PO SCH (10:12)
--- NOTE | 2017-11-09 11:52 | HOSPPROG ---
Hospitalist Progress Note Assessment/Plan: 27-year-old male presents with MSSA cellulitis and abscess left lower extremity. First encounter, chart reviewed. * MSSA cellulitis and abscess. -Acute, left lower extremity, status post incision and drainage by Dr. Mckinley Chawla on 11/05 -VERONICA w minimal output -ID recommends 7 days PO Abx s/p surgical intervention/IV Abx (this was noted by the previous provider) -on cefazolin at this time Diet. Regular Prophylaxis. High risk patient, Lovenox 40 Code. Full *Plan: dc per trauma team, will need VERONICA out. Will need a few days of oral abx. Can be dc on doxycycline or Bactrim. Subjective: Yinka feels well, no complaints. Objective: Vital Signs Temp Pulse Resp BP Pulse Ox 36.7 C 82 16 143/73 H 95 11/09/17 07:47 11/09/17 07:47 11/09/17 07:47 11/09/17 07:47 11/09/17 07:47 Laboratory Results 11/09/17 04:47 11/07/17 04:50 11/08/17 11/09/17 11/10/17 05:59 05:59 05:59 Intake Total 2040 1879 Output Total 1630 Balance 410 1879 PT 15.7 SEC (12.0-15.0) H 11/05/17 11:24 INR 1.23 (0.83-1.16) H 11/05/17 11:24 - Physical Exam Constitutional: no apparent distress, appears nourished, not in pain Eyes: PERRL Ears, Nose, Mouth, Throat: hearing normal Cardiovascular: regular rate and rhythym Respiratory: no respiratory distress Gastrointestinal: normoactive bowel sounds Skin: warm, other (veronica drain from leg w scant fluid) Musculoskeletal: full muscle strength Neurologic: AAOx3 Psychiatric: interacting appropriately ICD10 Worksheet Patient Problems: Problems Problem Status Onset Abscess of left lower extremity Acute Left leg cellulitis Acute
[2017-11-09 15:20] VITALS: BP 140/74
--- NOTE | 2017-11-09 15:31 | SOAPPROG ---
SOAP Progress Note Assessment/Plan: 11/07/17 09:01 POD#2 Assessment: Erythema decreased. extent of 4+ edema decreased. Has staph that is pansensitive. WBC 7.9. wound vac output minimal Plan: Return to OR for reassessment/debridement with wound vac change or closure over drain. 11/08/17 15:59 POD#1&3 Assessment: Leg dramatically better, Afebrile, VSS, drainage down, edema decreased Plan: re-evaluate tomorrow to see if drain can be removed. Wounld not remove sutures until 3 more weeks have elapsed. 11/09/17 15:25 POD#2&4 Assessment: Doing quite well. Afebrile, RAMON drainage minimal ( removed), Edema resolved. WBC good. Plan: Will use bactrim for 5 days Will ask him to see Pravin Lim or Corky on Thursday for a wound check Objective: Vital Signs Temp Pulse Resp BP Pulse Ox 36.8 C 86 18 140/74 H 98 11/09/17 15:13 11/09/17 15:13 11/09/17 15:13 11/09/17 15:13 11/09/17 15:13 Laboratory Results 11/09/17 04:47 11/07/17 04:50 11/08/17 11/09/17 11/10/17 05:59 05:59 05:59 Intake Total 2040 1879 Output Total 1630 Balance 410 1879 PT 15.7 SEC (12.0-15.0) H 11/05/17 11:24 INR 1.23 (0.83-1.16) H 11/05/17 11:24 - Time Spent With Patient Time Spent With Patient: 15 - Pending Discharge Pending Discharge Within 24 Hours: Yes Pending Discharge Date: 11/09/17 Pending Discharge Time: 16:00 ICD10 Worksheet Patient Problems: Problems Problem Status Onset Abscess of left lower extremity Acute Left leg cellulitis Acute
--- NOTE | 2017-11-09 17:03 | ASMTCMCOM ---
CM Note CM Note Notes: Pt medically stable for d/c, no CM d/c needs identified. Date Signed: 11/09/2017 05:02 PM Electronically Signed By:GINA Toussaint
--- NOTE | 2017-11-09 17:24 | GDS ---
[f rep st] DISCHARGE SUMMARY DISCHARGE DIAGNOSIS: Abscess left proximal anterior lateral lower leg. PROCEDURE: I and D and wound VAC placement, with subsequent return to the operating room for debride ment and delayed primary closure over drain. CONDITION AT DISCHARGE: Improved. DISPOSITION: Is home. DIET: There are no dietary restrictions. I do recommend he take a multivitamin with zinc, copper, a nd C daily. There are no restrictions on dietary texture. MEDICATIONS: Home medications will include: Bactrim DS for 5 days, treating the methicillin sensiti ve Staph aureus, which was cultured from the wound. He will continue on Tylenol 1000 mg every 8 hour s and Motrin 200 mg every 6 hours. That is sufficient for his pain control. HOSPITAL COURSE: The patient was admitted and treated as mentioned above. He has done quite well. His 4+ left leg edema is now down to 1+. He has an Luis wrap in place and we will leave that on for 4 8 hours. He is to follow up with Dr. Herson Quispe or his colleagues on Thursday of this week for wo und recheck. His sutures should come out in 3 weeks. His RAMON drain was removed today. He had minimal drainage overnight. /[id number]/MODL
== END 2017-11-09 17:17 | disposition home or self-care (01) | DRG 581 ==
LOC: F3N 15:50
PROVIDERS: ADMIT Student in an Organized Health Care Education/Training Program; ATTEND Surgery
DX: L03.116 Cellulitis of left lower limb (principal); L02.416 Cutaneous abscess of left lower limb; B95.61 Methicillin susceptible Staphylococcus aureus infection as the cause of diseases classified elsewhere
CPT/HCPCS: 96365; 97161-GP; J0690; J1100; J1650; J1885; J2250; J2270; J2405; J2704; J3010; J3370